=== PATIENT | male | born 1985 | race Caucasian/White ===

== ENCOUNTER 2016-10-22 21:23 | Emergency (ER) | payer OTHER ==
[2016-10-22] MEDS ORDERED: NORMAL SALINE 1,000 ML IV ONE (21:55)
[2016-10-22] MEDS ORDERED: LORazepam 2 MG/ML DISP.SYRIN IV ONE (22:05)
[2016-10-22] MEDS ORDERED: LORazepam 2 MG/ML DISP.SYRIN ONE (22:10)
[2016-10-22 22:12] LABS: Hematocrit 41.3 % (42.0-52.0); Hemoglobin 14.5 gm/dL (13.5-18.0); Mean Cell Volume 87.9 fl (78-100); Mean Corpuscular Hemoglobin 30.9 pg (27-31); Mean Corpuscular Hgb Conc 35.1 g/dl (32-36); Mean Platelet Volume 9.8 fl (6.0-9.5); Neutrophil # 10.5 K/mm3 (1.3-6.0); Platelet Count 222 K/mm3 (150-450); Red Cell Distribution Width 11.6 % (11.5-14.0); White Blood Count 12.5 K/mm3 (4.0-10.5)
[2016-10-22 22:28] LABS: Cocaine Ur Negative (NEGATIVE); Urine Barbiturate Negative (NEGATIVE); Urine Benzodiazepines Negative (NEGATIVE); Urine Opiates Negative (NEGATIVE); Urine PCP Negative (NEGATIVE); Urine THC Negative (NEGATIVE)
[2016-10-22 22:32] LABS: ALT 35 U/L (19-67); AST 16 U/L (0-48); Albumin * 4.1 gm/dl (3.4-5.0); Alkaline Phosphatase * 47 U/L (50-170); Anion Gap 16.8 mmol/L (6.8-13.8); BUN/Creatinine Ratio 11.2 (9.0-21.6); Bilirubin, Total 0.2 mg/dL (0.0-1.1); Blood Urea Nitrogen 12 mg/dL (6-23); CK Total * 147 U/L (0-259); Ca. Corrected For Albumin 8.8 mg/dL (8.4-10.2); Calcium * 9.2 mg/dL (7.9-10.9); Carbon Dioxide 22.7 mmol/L (24-32.6); Chloride 105 mmol/L (97-106); Glucose * 111 mg/dL (70-110); Potassium 3.5 mmol/L (3.4-4.6); Sodium 141 mmol/L (132-142); Total Protein 7.7 gm/dL (6.2-8.2)
--- NOTE | 2016-10-22 22:48 | ERNOTE ---
Dizziness ER Record Date of Service: 10/22/16 Presenting Symptoms: dizziness, other - shaky dizziness feels like there something in the back of his head. Time Seen by Provider: 10/22/16 21:43 Source: patient, police Immunizations: IMMUNIZATION HX Immunizations Up to Date Yes Allergies/Adverse Reactions: Allergies Allergy/AdvReac Type Severity Reaction Status Date / Time No Known Allergies Allergy Unverified 10/22/16 21:40 Home Medications: HOME MEDICATIONS Diphenhydramine HCl [Nighttime Sleep Aid] 100 mg PO HS 10/22/16 [Last Taken Unknown] Sertraline HCl [Zoloft] 50 mg PO HS 10/22/16 [Last Taken Unknown] Ziprasidone HCl 40 mg PO HS 10/22/16 [Last Taken Unknown] - History of Present Illness Narrative: Patient presents via law enforcement from [facility]. Here for shakes and headache, tremulousness, known history of seizures, not currently on any seizure medications. Onset of activity was approximately 7:00 she reports that med passout time is about 7:15 and was just prior to that he started feeling funny and he felt like there was something going on in the back of his head and he was very dizzy and was tremulous he reports that he had "" seizures however he was aware of this and what sounds like more like a increased muscle fasciculations and tremulousness. Date (Duration): 10/22/16 Time (Timing): 19:00 Timing and Duration: gradual onset, still present Episodes lasting:: episode seems to be a little bit better but the tremulousness continues the Worse/persistent since:: persistence Noted on awakening:: No - states he awoke normal today. Severity: max: severe Severity: currently: moderate Associated Symptoms: Present: sense of confusion, other - states he feels like he is "dumb ", "retarded" Fainted/near fainted while:: Present: supine - laying supine did seem to help. Decreased ability to stand/walk:: Present: weak, off balance, cannot walk, cannot stand Usually:: Present: walks w/o assistance Modifying Factors - (Improves): Reports: nothing, other - laying supine Modifying Factors - (Worsens): Reports: other - name medication last dose last evening Geodon 40 mg daily was recently increased. Only new change in his regimen Prior Treament: Reports: other - medication adjustments yesterday. Review of Systems - Narrative Narrative: Patient is able to give review of systems this time. Very nervous and anxious regarding previous events noted above. - Review of Systems Constitutional: Present: diaphoresis, weakness, other - feels hot and cold EYE: Present: blurred vision ENT: Present: no symptoms reported Respiratory: Present: no symptoms reported Cardiology: Present: palpitations Gastrointestinal/Abdominal: Present: See HPI, nausea. Absent: vomiting, abdominal pain Genitourinary: Present: no symptoms reported Musculoskeletal: Present: other - shakiness muscle achiness. Skin: Present: no symptoms reported Neurological: Present: anxiety, weakness, tremors, other - feels uncoordinated Endocrine: Present: no symptoms reported Hematologic/Lymphatic: Present: no symptoms reported Psych: Present: depressed All Other Systems: All systems neg except as marked - Narrative Narrative: Anxious appearing male currently examined with one law enforcement present and hand and ankle restraints. - Patient's Past Medical History Patient History - Medical: Depression, Seizures Patient History - Cardiac/Respiratory: No pertinent hx Patient History - Cancer: No Hx of Cancer Patient History - Surgical Procedures: ENT - Social History Living Situations: other Abuse History: No History of abuse Psych History: Hx of Depression Have you smoked in the past 12 months: No Do you dip or chew tobacco: No Alcohol Use: none Drug Use: meth - Immunizations Immunizations Up to Date: Yes Physical Exam - Physical Exam General Appearance: Present: moderate distress Head Exam: Present: normal inspection, no evidence of injury Eye Exam: Normal inspection: bilateral, PERRL: bilateral, EOMI: bilateral Ears, Nose, Throat: Present: normal ENT inspection, other - posterior pharynx has some mild erythema left greater than right. Neck: Present: normal inspection, nontender Respiratory: Present: no respiratory distress, normal breath sounds Cardiovascular/Chest: Present: regular rate, rhythm, no murmur, normal peripheral pulses Peripheral Pulses: N=norm/S=strong/W=weak/B=bound/A=absent: Carotid (R): Normal , Carotid (L): Normal Gastrointestinal/Abdominal: Present: normal bowel sounds, nontender, nondistended, soft, no organomegaly Rectal Exam: Present: deferred Male Genitals Exam: Present: deferred Back Exam: Present: vertebral tenderness - paravertebral muscle and the cervical spine are notably spasmed intense. Extremity Exam: Present: normal inspection, non-tender, normal range of motion, no edema Neurological Exam: Present: alert, oriented, normal mood/affect Skin Exam: Present: normal color, warm/dry Lymphatic Exam: Present: no adenopathy ED Progress - Results and Orders Patient's Lab Results:: I have reviewed the patient's lab results. Results and Orders: Laboratory Tests 10/22/16 10/22/16 10/22/16 22:00 22:05 22:05 WBC 12.5 H RBC 4.70 Hgb 14.5 Hct 41.3 L MCV 87.9 MCH 30.9 MCHC 35.1 RDW 11.6 Plt Count 222 MPV 9.8 H Immature Gran % (Auto) 0.30 Immature Gran # (Auto) 0.04 H Neutrophils % 84.0 H Lymphocytes % 8.3 L Monocytes % 6.8 Eosinophils % 0.2 Basophils % 0.4 Nucleated RBC % 0.0 Sodium 141 Potassium 3.5 Chloride 105 Carbon Dioxide 22.7 L Anion Gap 16.8 H BUN 12 Creatinine 1.07 Est GFR (Non-Af Amer) 85 BUN/Creatinine Ratio 11.2 Random Glucose 111 H Calcium 9.2 Calcium Adj for Albumin 8.8 Total Bilirubin 0.2 AST 16 ALT 35 Alkaline Phosphatase 47 L Creatine Kinase 147 C-Reactive Prot, Quant Less than 0.2 Total Protein 7.7 Albumin 4.1 Urine Opiates Screen Negative Barbiturate Screen Negative Ur Phencyclidine Scrn Negative Urine Amphetamine Negative U Benzodiazepines Scrn Negative Urine Cocaine Screen Negative Urine Marijuana (THC) Negative - Vital Signs Vital Signs: Vital Signs 10/22/16 21:32 Temperature 37.0 C Pulse Rate 100 Respiratory 16 Rate Blood Pressure 130/73 O2 Sat by Pulse 97 Oximetry - EKG EKG read: Reviewed by me EKG Comments: EKG completed at 2218 sinus tachycardia rate [address]-T wave changes are noted. Nonspecific conduction delay QTC is 416. - CT/Ultrasound CT/Ultrasound Narrative: CT head of was negative for any significant abnormalities. - Progress/Reassessment Chief Complaint: Dizziness Progress:: Pain free at discharge - Transfer of Care Expected Disposition: Discharge Additional Notes: Patient is released to the custody of law enforcement. Impression is serotonin syndrome resolved with IV hydration and anxiety anxiolytic medication Ativan 1 mg IV patient is stable to return my recommendations are that they hold the Geodon or at least reduce down to lowest dose possible. Patient the continue to show withdrawal symptoms if it is not really just reduced. Plan - Plan Plan: Patient is stable to be discharged back to law enforcement recommended medical watch for the next 48 hours. Departure Clinical Impression: Serotonergic syndrome - Departure Disposition: [facility] Condition: Good Instructions: Serotonin Syndrome Additional Instructions: Reduce geodon ton 20 mg then 10 mg then 5 mg then off
[2016-10-23 01:31] VITALS: BP 144/88
== END 2016-10-23 01:15 ==
LOC: ER 21:23
DX: T43.595A Adverse effect of other antipsychotics and neuroleptics, initial encounter (principal); Y92.149 Unspecified place in prison as the place of occurrence of the external cause; F32.89 Other specified depressive episodes

== ENCOUNTER 2016-11-29 15:19 | Emergency (ER) | payer OTHER ==
[2016-11-29] MEDS ORDERED: METOPROLOL TARTRATE 1 MG/ML AMPUL IV ONE ×3 (15:26→15:30)
[2016-11-29 15:44] LABS: Hematocrit 43.5 % (42.0-52.0); Hemoglobin 15.2 gm/dL (13.5-18.0); Mean Cell Volume 86.5 fl (78-100); Mean Corpuscular Hemoglobin 30.2 pg (27-31); Mean Corpuscular Hgb Conc 34.9 g/dl (32-36); Mean Platelet Volume 9.6 fl (6.0-9.5); Neutrophil # 7.6 K/mm3 (1.3-6.0); Neutrophil % 75.7 % (42-75.0); Platelet Count 264 K/mm3 (150-450); Red Blood Count 5.03 M/mm3 (4.7-6.0); Red Cell Distribution Width 11.8 % (11.5-14.0); White Blood Count 10.1 K/mm3 (4.0-10.5)
[2016-11-29 16:04] LABS: ALT 67 U/L (19-67); AST 22 U/L (0-48); Albumin * 4.3 gm/dl (3.4-5.0); Alkaline Phosphatase * 56 U/L (50-170); Anion Gap 19.4 mmol/L (6.8-13.8); BUN/Creatinine Ratio 12.1 (9.0-21.6); Bilirubin, Total 0.2 mg/dL (0.0-1.1); Blood Urea Nitrogen 13 mg/dL (6-23); Calcium * 9.6 mg/dL (7.9-10.9); Carbon Dioxide 21.1 mmol/L (24-32.6); Chloride 105 mmol/L (97-106); Glucose * 91 mg/dL (70-110); Magnesium 1.7 mg/dL (1.2-2.8); Potassium 3.5 mmol/L (3.4-4.6); Sodium 142 mmol/L (132-142); Total Protein 8.1 gm/dL (6.2-8.2); Troponin I Less than 0.017 ng/ml (0.00-0.10)
[2016-11-29] MEDS ORDERED: KETOROLAC TROMETHAMINE 30 MG/ML VIAL ONE (16:15)
[2016-11-29] MEDS ORDERED: KETOROLAC TROMETHAMINE 30 MG/ML VIAL IV ONE (16:17)
--- NOTE | 2016-11-29 16:19 | ERNOTE ---
Chest Pain/Cardiac HPI Chief Complaint: Chest Pain Time Seen by Provider: 11/29/16 15:25 Source: patient Exam Limitations: no limitations Immunizations: IMMUNIZATION HX Immunizations Up to Date Yes History of Influenza Vaccine Yes Hx Pneumococcal Vaccination No Allergies/Adverse Reactions: Allergies No Known Allergies Allergy (Unverified 10/22/16 21:40) Home Medications: HOME MEDICATIONS Diphenhydramine HCl [Nighttime Sleep Aid] 100 mg PO HS 10/22/16 [Last Taken Unknown] Sertraline HCl [Zoloft] 50 mg PO HS 10/22/16 [Last Taken Unknown] Ziprasidone HCl 40 mg PO HS 10/22/16 [Last Taken Unknown] Metoprolol Succinate [Toprol Xl] 25 mg PO DAILY #30 tab 11/29/16 [Last Taken Unknown] Narrative: Patient has been having episodes where his heart races and when this occurs he starts to feel tightness in his chest. He was noted to have a heart rate of approximately 150 at the [facility] and was having the tightness then. He was brought in for evaluation and treatment. Timing: constant Severity/Quality: moderate, tightness Location: central Chest Pain Radiation: no radiation Activities at Onset: none Modifying Factors - Improves: Present: nothing Modifying Factors - Worsens: Present: nothing Associated Symptoms: Present: denies symptoms Prior Chest Pain/Cardiac Workup: Reports: non-cardiac Prior Treatment: Reports: recently seen Review of Systems - Review of Systems Constitutional: Present: See HPI EYE: Present: no symptoms reported ENT: Present: no symptoms reported Respiratory: Present: no symptoms reported Cardiology: Present: See HPI, palpitations Gastrointestinal/Abdominal: Present: no symptoms reported Genitourinary: Present: no symptoms reported Musculoskeletal: Present: no symptoms reported Skin: Present: no symptoms reported Neurological: Present: no symptoms reported Endocrine: Present: no symptoms reported Hematologic/Lymphatic: Present: no symptoms reported Psych: Present: no symptoms reported - Patient's Past Medical History Patient History - Medical: Anxiety, Depression, Seizures Patient History - Cardiac/Respiratory: Other Patient History - Cancer: No Hx of Cancer Patient History - Surgical Procedures: ENT Patient History - Other: None - Social History Living Situations: other Abuse History: No History of abuse Psych History: Hx of Anxiety, Hx of Depression Smoking Status: Former smoker Have you smoked in the past 12 months: No Do you dip or chew tobacco: No Alcohol Use: none Drug Use: meth - Immunizations Immunizations Up to Date: Yes Hx Pneumococcal Vaccination: No History of Influenza Vaccine: Yes Physical Exam - Physical Exam General Appearance: Present: wd/wn, alert, mild distress Eye Exam: Normal inspection: bilateral, PERRL: bilateral Ears, Nose, Throat: Present: normal ENT inspection, H, normal pharynx Neck: Present: normal inspection, nontender Respiratory: Present: no respiratory distress, normal breath sounds, no accessory muscle use, chest nontender, lungs clear Cardiovascular/Chest: Present: no murmur, normal peripheral pulses, tachycardia Gastrointestinal/Abdominal: Present: normal bowel sounds, nontender, nondistended, soft, no organomegaly Rectal Exam: Present: deferred Back Exam: Present: normal inspection, normal range of motion Extremity Exam: Present: normal inspection, non-tender, no edema, normal range of motion Neurological Exam: Present: alert, oriented, normal mood/affect Skin Exam: Present: normal color, warm/dry Lymphatic Exam: Present: no adenopathy ED Progress - Results and Orders Patient's Lab Results:: I have reviewed the patient's lab results. - Vital Signs Vital Signs: Vital Signs 11/29/16 11/29/16 11/29/16 15:19 15:28 15:32 Temperature 37.3 C Pulse Rate 123 H 121 H 106 H Respiratory 14 Rate Blood Pressure 117/67 117/67 O2 Sat by Pulse 99 Oximetry 11/29/16 15:56 Temperature Pulse Rate 97 Respiratory 14 Rate Blood Pressure 119/78 O2 Sat by Pulse 99 Oximetry - EKG EKG: supraventricular tachycardia - X-Ray X-Ray #1 X-Ray: chest Interpretation: Reviewed by me - Progress/Reassessment Chief Complaint: Chest Pain Progress:: Improved Plan - Plan Plan: Patient was given 5 mg Lopressor IV and his heart returned to the 80s and his chest discomfort improved. We will have the skilled nursing physician examined the ongoing use of Zoloft in the face of serotonergic like reaction. Departure - Departure Clinical Impression: SVT (supraventricular tachycardia) Disposition: Home self-care Condition: Good Instructions: Paroxysmal Supraventricular Tachycardia, [id number] Prescriptions: Metoprolol Succinate [Toprol Xl] 25 mg PO DAILY #30 tab
[2016-11-29 17:46] VITALS: BP 114/77
== END 2016-11-29 16:30 | disposition home or self-care (01) ==
LOC: ER 15:19
DX: I47.1 Supraventricular tachycardia (principal); Z87.891 Personal history of nicotine dependence